=== PATIENT | male | born 1950 | race Caucasian/White ===

== ENCOUNTER 2018-01-30 18:41 | Inpatient (IN) | payer MEDICARE ==
[~2018-01-30] VITALS: Ht 188 cm; Wt 115.2 kg
[2018-01-30 18:48] VITALS: BP 174/88; PULSE 107; RESP 26; TEMP 100.9; O2SAT 89
[2018-01-30] MEDS ORDERED: ATOR40TA16 PO (18:56)
[2018-01-30] MEDS ORDERED: LOSA100T PO (18:56)
[2018-01-30] MEDS ORDERED: VENL75TA PO (18:56)
[2018-01-30] MEDS ORDERED: BACL10TA PO (18:58)
[2018-01-30] MEDS ORDERED: AMOX875T PO (18:58)
[2018-01-30] MEDS ORDERED: CARA1SUS3 PO (18:58)
[2018-01-30] MEDS ORDERED: MORPHINE SULFATE 4 MG/ML INJ IV PUSH ONE (19:00)
[2018-01-30] MEDS ORDERED: SODIUM CHLORIDE 0.9% FLUSH 10 ML FLUSH IVF PRN (19:00)
--- NOTE | 2018-01-30 19:12 | PD ---
HPI Chief Complaint: Cardiac Complaint Time Seen by Provider: 18:55 Travel History International Travel<30 days: No Contact w/Intl Traveler<30days: No Traveled to known affect area: No History of Present Illness HPI This is a 67-year-old male with a history hyperlipidemia, peptic ulcer disease, who presents here with shortness of breath and left-sided chest pain starting Friday, 3 days ago. Patient states that it has been progressive. Patient was seen at an urgent care yesterday and started on amoxicillin and Carafate. At that time, he states that they told him his chest x-ray was fine however he had sinusitis. They told him that if he develops any worsening symptoms that he should come be seen at an ER. The patient reports the chest pain as sharp and reports it as an 8 out of 10 on the pain scale. He reports it radiates to his back below his scapula. The patient denies any history of heart attacks or coronary artery disease. PFSH Past Medical History Depression: Yes High Cholesterol: Yes Hypertension: Yes Medical other: Yes (IBS) Ulcer: Yes Past Surgical History Abdominal Surgery: Yes (HERNIA) Appendectomy: Yes Genitourinary Surgery: Yes (TURP) Tonsillectomy: Yes Social History Alcohol Use: Yes (OCC) Tobacco Use: No Substance Use: No Allergies-Medications (Allergen,Severity, Reaction): Coded Allergies: Penicillins (Verified Allergy, Unknown, Hives, 01/30/18) Sulfa (Sulfonamide Antibiotics) (Verified Allergy, Unknown, Hives, 01/30/18) aspirin (Verified Allergy, Unknown, Hives, 01/30/18) Reported Meds & Prescriptions Reported Meds & Active Scripts Active Reported Carafate Liq (Sucralfate) 1 Gm/10 Ml Susp 10 Ml PO DAILY on empty stomach Baclofen 10 Mg Tab 10 Mg PO DAILY Amoxicillin 875 Mg Tab 875 Mg PO BID Atorvastatin (Atorvastatin Calcium) 40 Mg Tab 40 Mg PO HS Effexor (Venlafaxine HCl) 75 Mg Tab 75 Mg PO DAILY Losartan (Losartan Potassium) 100 Mg Tab 100 Mg PO DAILY Review of Systems Except as stated in HPI: all other systems reviewed are Neg General / Constitutional: Positive: Fever, No: Chills Eyes: No: Blurred Vision, Drainage HENT: No: Headaches, Lightheadedness, Neck Pain Cardiovascular: Positive: Chest Pain or Discomfort, Palpitations, Tachycardia Respiratory: Positive: Shortness of Breath, No: Cough Gastrointestinal: No: Nausea, Vomiting, Abdominal Pain Genitourinary: No: Urgency, Dysuria Musculoskeletal: Positive: Pain (Radiating from his left chest to the back shoulder blade.), No: Weakness Skin: No Rash, No Lesions Neurologic: No: Weakness, Dizziness, Headache Physical Exam Narrative GENERAL: Well-developed well-nourished male in obvious discomfort. SKIN: Focused skin assessment warm/dry. HEAD: Atraumatic. Normocephalic. EYES: No scleral icterus. No injection or drainage. ENT: No nasal bleeding or discharge. Mucous membranes pink and moist. NECK: Trachea midline. No JVD. CARDIOVASCULAR: Sinus tachycardia with a rate of 116. No obvious murmurs appreciated. RESPIRATORY: Clear to auscultation bilaterally. No rales appreciated. GASTROINTESTINAL: Abdomen soft, non-tender, nondistended. No pulsatile masses appreciated. MUSCULOSKELETAL: No obvious deformities. No clubbing. No cyanosis. No edema. NEUROLOGICAL: Awake and alert. No obvious cranial nerve deficits. Motor grossly within normal limits. Normal speech. Data Data Last Documented VS Vital Signs Date Time Temp Pulse Resp B/P (MAP) Pulse Ox O2 Delivery O2 Flow Rate FiO2 01/30/18 18:52 94 Nasal Cannula 2.00 01/30/18 18:48 100.9 107 26 174/88 (116) Orders Orders Electrocardiogram (01/30/18 18:55) Ckmb (Isoenzyme) Profile (01/30/18 18:55) Complete Blood Count With Diff (01/30/18 18:55) Comprehensive Metabolic Panel (01/30/18 18:55) D-Dimer (01/30/18 18:55) Magnesium (Mg) (01/30/18 18:55) Prothrombin Time / Inr (Pt) (01/30/18 18:55) Act Partial Throm Time (Ptt) (01/30/18 18:55) Troponin I (01/30/18 18:55) Chest, Single Ap (01/30/18 18:55) Ecg Monitoring (01/30/18 18:55) Bilateral Bp Monitoring (01/30/18 18:55) Iv Access Insert/Monitor (01/30/18 18:55) Oximetry (01/30/18 18:55) Oxygen Administration (01/30/18 18:55) Morphine Inj (Morphine Inj) (01/30/18 19:00) Sodium Chloride 0.9% Flush (Ns Flush) (01/30/18 19:00) Blood Culture (01/30/18 19:06) Lactic Acid Sepsis Protocol (01/30/18 19:06) Acetaminophen (Tylenol) (01/30/18 19:15) Ct Pulmonary Angiogram (01/30/18 ) Labs Laboratory Tests Test 01/30/18 19:10 White Blood Count 17.6 TH/MM3 Red Blood Count 5.49 MIL/MM3 Hemoglobin 14.9 GM/DL Hematocrit 44.8 % Mean Corpuscular Volume 81.5 FL Mean Corpuscular Hemoglobin 27.1 PG Mean Corpuscular Hemoglobin Concent 33.2 % Red Cell Distribution Width 15.8 % Platelet Count 215 TH/MM3 Mean Platelet Volume 7.5 FL Neutrophils (%) (Auto) 71.4 % Lymphocytes (%) (Auto) 10.5 % Monocytes (%) (Auto) 5.8 % Eosinophils (%) (Auto) 11.1 % Basophils (%) (Auto) 1.2 % Neutrophils # (Auto) 12.6 TH/MM3 Lymphocytes # (Auto) 1.8 TH/MM3 Monocytes # (Auto) 1.0 TH/MM3 Eosinophils # (Auto) 2.0 TH/MM3 Basophils # (Auto) 0.2 TH/MM3 CBC Comment DIFF FINAL Differential Comment Blood Urea Nitrogen 12 MG/DL Creatinine 1.20 MG/DL Random Glucose 120 MG/DL Albumin 3.3 GM/DL Calcium Level 8.6 MG/DL Magnesium Level 2.2 MG/DL Aspartate Amino Transf (AST/SGOT) 15 U/L Alanine Aminotransferase (ALT/SGPT) 23 U/L Sodium Level 136 MEQ/L Potassium Level 4.0 MEQ/L Chloride Level 99 MEQ/L Carbon Dioxide Level 25.7 MEQ/L Anion Gap 11 MEQ/L Estimat Glomerular Filtration Rate 61 ML/MIN Lactic Acid Level 1.1 mmol/L [facility] Medical Decision Making Medical Screen Exam Complete: Yes Emergency Medical Condition: Yes Differential Diagnosis ACS versus pulmonary embolus versus thoracic aortic dissection Narrative Course 67-year-old male with history of hypertension, hyperlipidemia, presents today with complaints of shortness of breath and chest pain. The patient has sinus tachycardia. His saturations were in the 80s in room air. Labs and x-rays are pending at this time. Patient will be signed out to Dr. Guillaume, physician replaced me at change of shift. This position will be per her. Diagnosis Primary Impression: Chest pain Additional Impressions: Dyspnea Hypoxia Tachycardia Tay Casillas MD Jan 30, 2018 19:11
--- NOTE | 2018-01-30 19:14 | PD ---
Physical Exam Narrative Received sign out from previous team to follow up labs, reevaluate. 67yo M with PMH of peptic ulcer disease, BPH presents to the ED with c/o left sided chest pain for 3 days. Said pain is sharp, radiates to left scapula and constant. Associated with sob. Cough makes the pain worst. Pt went to urgent care 3 days ago and was given amoxicillin for sinusitis and had negative CXR. Pt is hypoxic at 89% on room air and saturating at 93% on 2L NC. He is tachypneic and tachycardic. Labs reviewed, leukocytosis at 17.6. H/H normal. Lactic acid normal at 1.1. Troponin negative. CXR showed bibasilar areas of atelectasis. CT angio showed large left pulmonary embolus. Patchy areas of consolidation seen at the periphery of left lung. Could represent areas of atelectasis, consolidation, or infarction. Suspected atelectasis or consolidation at the right lung base. Heparin bolus and drip started. Pt denies any bleeding or black stool. O2 sat is 93-94% on 1-2 liters nasal cannula. Pt cover with vancomycin and aztreonam for pneumonia. He is hemodynamically stable. Discussed with Dr. Adams and accepted to her service to the [facility]. Data Data Last Documented VS Vital Signs Date Time Temp Pulse Resp B/P (MAP) Pulse Ox O2 Delivery O2 Flow Rate FiO2 01/30/18 20:57 100.6 102 18 134/82 (99) 93 Room Air 01/30/18 18:52 2.00 Orders Orders Electrocardiogram (01/30/18 18:55) Ckmb (Isoenzyme) Profile (01/30/18 18:55) Complete Blood Count With Diff (01/30/18 18:55) Comprehensive Metabolic Panel (01/30/18 18:55) D-Dimer (01/30/18 18:55) Magnesium (Mg) (01/30/18 18:55) Prothrombin Time / Inr (Pt) (01/30/18 18:55) Act Partial Throm Time (Ptt) (01/30/18 18:55) Troponin I (01/30/18 18:55) Chest, Single Ap (01/30/18 18:55) Ecg Monitoring (01/30/18 18:55) Bilateral Bp Monitoring (01/30/18 18:55) Iv Access Insert/Monitor (01/30/18 18:55) Oximetry (01/30/18 18:55) Oxygen Administration (01/30/18 18:55) Morphine Inj (Morphine Inj) (01/30/18 19:00) Sodium Chloride 0.9% Flush (Ns Flush) (01/30/18 19:00) Blood Culture (01/30/18 19:06) Lactic Acid Sepsis Protocol (01/30/18 19:06) Acetaminophen (Tylenol) (01/30/18 19:15) Ct Pulmonary Angiogram (01/30/18 ) [employer] / Telemetry ERAN.Q8H (01/30/18 20:34) Intake + Output ERAN.QSHIFT (01/30/18 20:34) Resp Pulse Oximetry (01/30/18 ) Heparin Inj (Heparin Inj) (01/30/18 20:45) Heparin-D5w 25,000 U/250 Ml (Heparin-D5w (01/30/18 21:00) Act Partial Throm Time (Ptt) (01/30/18 20:34) Prothrombin Time / Inr (Pt) (01/30/18 20:34) Cbc No Diff, Includes Plts (01/30/18 20:34) Cbc No Diff, Includes Plts (02/02/18 06:00) Act Partial Throm Time (Ptt) (01/31/18 03:34) Vancomycin Inj (Vancomycin Inj) (01/30/18 21:00) Aztreonam Inj (Azactam Inj) (01/30/18 21:00) Ns (Bolus) Inj (01/30/18 21:15) Admit Order (Ed Use Only) (01/30/18 21:02) Labs Laboratory Tests Test 01/30/18 19:10 White Blood Count 17.6 TH/MM3 Red Blood Count 5.49 MIL/MM3 Hemoglobin 14.9 GM/DL Hematocrit 44.8 % Mean Corpuscular Volume 81.5 FL Mean Corpuscular Hemoglobin 27.1 PG Mean Corpuscular Hemoglobin Concent 33.2 % Red Cell Distribution Width 15.8 % Platelet Count 215 TH/MM3 Mean Platelet Volume 7.5 FL Neutrophils (%) (Auto) 71.4 % Lymphocytes (%) (Auto) 10.5 % Monocytes (%) (Auto) 5.8 % Eosinophils (%) (Auto) 11.1 % Basophils (%) (Auto) 1.2 % Neutrophils # (Auto) 12.6 TH/MM3 Lymphocytes # (Auto) 1.8 TH/MM3 Monocytes # (Auto) 1.0 TH/MM3 Eosinophils # (Auto) 2.0 TH/MM3 Basophils # (Auto) 0.2 TH/MM3 CBC Comment DIFF FINAL Differential Comment Prothrombin Time 10.5 SEC Prothromb Time International Ratio 1.0 RATIO Activated Partial Thromboplast Time 27.7 SEC D-Dimer Quantitative (PE/DVT) 2.53 MG/L FEU Blood Urea Nitrogen 12 MG/DL Creatinine 1.20 MG/DL Random Glucose 120 MG/DL Total Protein 7.8 GM/DL Albumin 3.3 GM/DL Calcium Level 8.6 MG/DL Magnesium Level 2.2 MG/DL Alkaline Phosphatase 67 U/L Aspartate Amino Transf (AST/SGOT) 15 U/L Alanine Aminotransferase (ALT/SGPT) 23 U/L Total Bilirubin 0.6 MG/DL Sodium Level 136 MEQ/L Potassium Level 4.0 MEQ/L Chloride Level 99 MEQ/L Carbon Dioxide Level 25.7 MEQ/L Anion Gap 11 MEQ/L Estimat Glomerular Filtration Rate 61 ML/MIN Lactic Acid Level 1.1 mmol/L Total Creatine Kinase 67 U/L Troponin I LESS THAN 0.02 NG/ML MDM Supervised Visit with KO: No Interpretation(s) EKG: Sinus tachycardia at 106bpm. Normal axis. No significant ST elevation or depression. Critical Care Narrative Aggregate critical care time was 50 minutes. Time to perform other separately billable procedures was not included in the critical care time. My time did not include minutes spent treating any other patients simultaneously or on activities that did not directly contribute to the patient's treatment. The services I provided to this patient were to treat and/or prevent clinically significant deterioration that could result in: cardiovascular collapse or . I provided critical care services requiring my management, as noted below: Chart data review, documentation time, medication orders and management, vital sign assessments/reviewing monitor data, ordering and reviewing lab tests, ordering and interpreting/reviewing x-rays and diagnostic studies, care of the patient and discussion of the patient with the admitting physicians. Diagnosis Primary Impression: Pulmonary embolism Qualified Codes: I26.99 - Other pulmonary embolism without acute cor pulmonale Admitting Information Admitting Physician Requests: Admit Vannessa Guillaume DO Jan 30, 2018 19:14
[2018-01-30] MEDS ORDERED: ACETAMINOPHEN 325 MG TAB PO ONE (19:15)
[2018-01-30 19:34] LABS: AUTOMATED NEUTROPHIL # 12.6 TH/MM3 (1.8-7.7); BASOPHIL # 0.2 TH/MM3 (0-0.2); BASOPHIL % 1.2 % (0.0-2.0); EOSINOPHIL % 11.1 % (0.0-4.0); HEMATOCRIT 44.8 % (39.0-51.0); HEMOGLOBIN 14.9 GM/DL (13.0-17.0); LYMPH % 10.5 % (9.0-44.0); LYMPHOCYTE # 1.8 TH/MM3 (1.0-4.8); MEAN CELL VOLUME 81.5 FL (80.0-100.0); MEAN CORPUSCULAR HEMOGLOBIN 27.1 PG (27.0-34.0); MEAN CORPUSCULAR HGB CONC 33.2 % (32.0-36.0); MEAN PLATELET VOLUME 7.5 FL (7.0-11.0); MONO % 5.8 % (0.0-8.0); NEUT % 71.4 % (16.0-70.0); PLATELET COUNT 215 TH/MM3 (150-450); RED BLOOD COUNT 5.49 MIL/MM3 (4.50-5.90); RED CELL DISTRIBUTION WIDTH 15.8 % (11.6-17.2); WHITE BLOOD COUNT 17.6 TH/MM3 (4.0-11.0)
--- NOTE | 2018-01-30 19:46 | RADRPT ---
EXAM DATE: 01/30/2018 7:38 PM EDT AGE/SEX: 67 years / Male INDICATIONS: Shortness of breath, chest pain for 4 days CLINICAL DATA: This is the patient's initial encounter. Patient reports that signs and symptoms have been present for 4 - 6 days and indicates a pain score of 6/10. MEDICAL/SURGICAL HISTORY: None. None. COMPARISON: No prior exams available for comparison. FINDINGS: The heart size is normal. There is linear density seen at the bases bilaterally. The mid and upper nia ngs are clear. No effusion is seen. CONCLUSION: Suspected bibasilar areas of atelectasis. Electronically signed by: Ken Smyth MD 01/30/2018 7:45 PM EDT
[2018-01-30 20:05] LABS: PROTHROMBIN TIME - PATIENT 10.5 SEC (9.8-11.6)
[2018-01-30 20:06] LABS: ALBUMIN 3.3 GM/DL (3.4-5.0); AST (GOT) 15 U/L (15-37); BICARBONATE 25.7 MEQ/L (21.0-32.0); BLOOD UREA NITROGEN 12 MG/DL (7-18); CALCIUM 8.6 MG/DL (8.5-10.1); CHLORIDE 99 MEQ/L (98-107); GLOMERULAR FILTRATION RATE 61 ML/MIN (>89); GLUCOSE,RANDOM 120 MG/DL (74-106); MAGNESIUM 2.2 MG/DL (1.5-2.5); SODIUM (NA) 136 MEQ/L (136-145)
[2018-01-30 20:07] LABS: ALT (GPT) 23 U/L (12-78)
[2018-01-30 20:11] LABS: ALKALINE PHOSPHATASE 67 U/L (45-117); TOTAL BILIRUBIN ADULT 0.6 MG/DL (0.2-1.0); TOTAL PROTEIN 7.8 GM/DL (6.4-8.2); TROPONIN I LESS THAN 0.02 NG/ML (0.02-0.05)
[2018-01-30 20:16] LABS: D-DIMER 2.53 MG/L FEU (0.00-0.50)
--- NOTE | 2018-01-30 20:43 | RADRPT ---
EXAM DATE: 01/30/2018 8:35 PM EDT AGE/SEX: 67 years / Male INDICATIONS: Right sided chest pain, shortness of breath. CLINICAL DATA: This is the patient's initial encounter. Patient reports that signs and symptoms have been present for 1 day and indicates a pain score of 4/10. MEDICAL/SURGICAL HISTORY: Hypertension. Appendectomy. RADIATION DOSE: 23.30 CTDI (mGy) COMPARISON: No prior exams available for comparison. TECHNIQUE: Volumetric scanning was performed using a multi-row detector CT scanner during bolus infu howard of 75 ml Omnipaque 350 (iohexol) nonionic water-soluble contrast as a single exam dose. The roslyn a was post processed with a variety of visualization algorithms including full volume maximum intensi ty projection and sliding thin slab reformation. Using automated exposure control and adjustment of the mA and/or kV according to patient size, radiation dose was kept as low as reasonably achievable t o obtain optimal diagnostic quality images. FINDINGS: Pulmonary Arteries: There is a large pulmonary embolus seen at the left pulmonary artery. There exte nds into the pulmonary artery supplying the left upper and lower lobes. No pulmonary embolus is seen on the right side. Lung: There are patchy areas of density seen in the posterior left upper lobe, at the periphery of t he left midlung, and at the posterior left base. These areas are nonspecific and could represent area s of atelectasis. Infarcts could have a similar appearance. There is some patchy consolidation or ate lectasis at the posterior right lower lobe. Effusion: None. Mediastinum: No evidence of mediastinal or hilar adenopathy. Other: The axilla is unremarkable. There is a 2.5 cm suspected cyst in the superior aspect of the ri ght lobe of the liver. CONCLUSION: 1. Large left pulmonary embolus. 2. Patchy areas of consolidation seen at the periphery of the left lung. These could represent areas of atelectasis, consolidation or infarction. 3. Suspected atelectasis or consolidation at the right lung base. Electronically signed by: Ken Smyth MD 01/30/2018 8:42 PM EDT
[2018-01-30] MEDS ORDERED: HEPARIN SODIUM - IV 10,000 UNITS/10 ML VIAL IV PUSH ONE (20:45)
[2018-01-30 20:57] VITALS: BP 134/82; PULSE 102; RESP 18; TEMP 100.6; O2SAT 93
[2018-01-30] MEDS ORDERED: HEPARIN-D5W 25,000 U/250 ML 250 ML IV PRN (21:00)
[2018-01-30] MEDS ORDERED: AZTREONAM INJ 1,000 MG in SODIUM CHLORIDE 0.9% INJ 100 ML IV ONE (21:00)
[2018-01-30] MEDS ORDERED: VANCOMYCIN INJ 1,600 MG in SODIUM CHLORID 0.9% 500 ML INJ 500 ML IV ONE (21:00)
[2018-01-30] MEDS ORDERED: SODIUM CHLOR 0.9% 1000 ML INJ 1,000 ML IV ONE (21:15)
--- NOTE | 2018-01-30 21:39 | HHI.HP ---
[facility] Unknown Admission Diagnosis Large left PE, pneumonia Diagnoses: (1) Sepsis Diagnosis: Principal (2) PE (pulmonary thromboembolism) Diagnosis: Principal (3) PNA (pneumonia) Diagnosis: Principal (4) Chest pain Diagnosis: Principal Travel History International Travel<30 Days: No Contact w/Intl Traveler <30 Da: No Traveled to Known Affected Are: No History of Present Illness This is a 67-year-old male with a PMH of HTN, Hyperlipidemia and Depression who presents to ER with complaints of chest pain and SOB x3 days. States he is on vacation here from [place] w/ , flew into town 1wk ago. Was seen at Urgent Care yesterday for SOB and had negative CXR per patient, was given Rx for Amoxicillin for sinusitis. Today, pt w/ worsening c/o chest pain and SOB. Chest pain is left-sided, severe, 9/10, constant, worse w/ deep breath. No h/o CAD. SOB worse w/ exertion. On arrival, BP 174/88, HR 107, O2 sat 89% on RA, Temp 100.9. WBC 17.6. GFR 61. Lactic Acid normal. Troponin negative. INR 1.0. D-dimer 2.53. CXR with bibasilar atelectasis. CTA Pulm w/ large left PE , patchy areas of consolidation bilaterally. S/p Vanc/Zosyn in ER, started on Heparin gtt. Denies previous h/o DVT/PE, no recent surgery, no tobacco abuse, + recent travel. Review of Systems Except as stated in HPI: all other systems reviewed are Neg ROS: 14 point review of systems otherwise negative. Past Family Social History Past Medical History PMH: HTN, Hyperlipidemia and Depression Past Surgical History PAST SURGICAL HISTORY: Hernia Repair, Appendectomy, TURP, Tonsillectomy Allergies: Coded Allergies: Penicillins (Verified Allergy, Unknown, Hives, 01/30/18) Sulfa (Sulfonamide Antibiotics) (Verified Allergy, Unknown, Hives, 01/30/18) aspirin (Verified Allergy, Unknown, Hives, 01/30/18) Family History PAST FAMILY HISTORY: Reviewed. No h/o DM or CAD Social History PAST SOCIAL HISTORY: Occasional alcohol. Negative for tobacco or drugs per Physical Exam Vital Signs Vital Signs Date Time Temp Pulse Resp B/P (MAP) Pulse Ox O2 Delivery O2 Flow Rate FiO2 01/30/18 20:57 100.6 102 18 134/82 (99) 93 Room Air 01/30/18 18:52 94 Nasal Cannula 2.00 01/30/18 18:48 100.9 107 26 174/88 (116) 89 Physical Exam PE: GENERAL: Very pleasant middle-aged white male in no acute distress. at bedside. HEENT: PERRLA, EOMI. No scleral icterus or conjunctival pallor. No lid lag or facial droop. CARDIOVASCULAR: Regular rate and rhythm. No obvious murmurs to auscultation. No chest tenderness to palpation. RESPIRATORY: No obvious rhonchi or wheezing. Clear to auscultation. Breath sounds equal bilaterally. GASTROINTESTINAL: Abdomen soft, non-tender, nondistended. BS normal. MUSCULOSKELETAL: Extremities without clubbing, cyanosis, or edema. No obvious deformities. NEUROLOGICAL: Awake, alert and oriented x4. No focal neurologic deficits. Moving both upper and lower extremities spontaneously. Laboratory Laboratory Tests Test 01/30/18 19:10 White Blood Count 17.6 Red Blood Count 5.49 Hemoglobin 14.9 Hematocrit 44.8 Mean Corpuscular Volume 81.5 Mean Corpuscular Hemoglobin 27.1 Mean Corpuscular Hemoglobin Concent 33.2 Red Cell Distribution Width 15.8 Platelet Count 215 Mean Platelet Volume 7.5 Neutrophils (%) (Auto) 71.4 Lymphocytes (%) (Auto) 10.5 Monocytes (%) (Auto) 5.8 Eosinophils (%) (Auto) 11.1 Basophils (%) (Auto) 1.2 Neutrophils # (Auto) 12.6 Lymphocytes # (Auto) 1.8 Monocytes # (Auto) 1.0 Eosinophils # (Auto) 2.0 Basophils # (Auto) 0.2 CBC Comment DIFF FINAL Differential Comment Prothrombin Time 10.5 Prothromb Time International Ratio 1.0 Activated Partial Thromboplast Time 27.7 D-Dimer Quantitative (PE/DVT) 2.53 Blood Urea Nitrogen 12 Creatinine 1.20 Random Glucose 120 Total Protein 7.8 Albumin 3.3 Calcium Level 8.6 Magnesium Level 2.2 Alkaline Phosphatase 67 Aspartate Amino Transf (AST/SGOT) 15 Alanine Aminotransferase (ALT/SGPT) 23 Total Bilirubin 0.6 Sodium Level 136 Potassium Level 4.0 Chloride Level 99 Carbon Dioxide Level 25.7 Anion Gap 11 Estimat Glomerular Filtration Rate 61 Lactic Acid Level 1.1 Total Creatine Kinase 67 Troponin I LESS THAN 0.02 Date/Time Source Procedure Growth Status 01/30/18 19:10 Blood Peripheral Aerobic Blood Culture Pending Received 01/30/18 19:10 Blood Peripheral Anaerobic Blood Culture Pending Received Result Diagram: 01/30/18190901/30/181909 Caprini VTE Risk Assessment Caprini VTE Risk Assessment: Mod/High Risk (score >= 2) Caprini Risk Assessment Model Point Value = 1 Point Value = 2 Point Value = 3 Point Value = 5 Age 41-60 Minor surgery BMI > 25 kg/m2 Swollen legs Varicose veins or History of unexplained or recurrent spontaneous Oral contraceptives or hormone replacement Sepsis (< 1 month) Serious lung disease, including pneumonia (< 1 month) Abnormal pulmonary function Acute myocardial infarction Congestive heart failure (< 1 month) History of inflammatory bowel disease Medical patient at bed rest Age 61-74 Arthroscopic surgery Major open surgery (> 45 min) Laparoscopic surgery (> 45 min) Malignancy Confined to bed (> 72 hours) Immobilizing plaster cast Central venous access Age >= 75 History of VTE Family history of VTE Factor V Leiden Prothrombin [id number] Lupus anticoagulant Anticardiolipin antibodies Elevated serum homocysteine Heparin-induced thrombocytopenia Other congenital or acquired thrombophilia Stroke (< 1 month) Elective arthroplasty Hip, pelvis, or leg fracture Acute spinal cord injury (< 1 month) Prophylaxis Regimen Total Risk Factor Score Risk Level Prophylaxis Regimen 0-1 Low Early ambulation 2 Moderate Order ONE of the following: *Sequential Compression Device (SCD) *Heparin 5000 units SQ BID 3-4 Higher Order ONE of the following medications: *Heparin 5000 units SQ TID *Enoxaparin/Lovenox 40 mg SQ daily (WT < 150 kg, CrCl > 30 mL/min) *Enoxaparin/Lovenox 30 mg SQ daily (WT < 150 kg, CrCl > 10-29 mL/min) *Enoxaparin/Lovenox 30 mg SQ BID (WT < 150 kg, CrCl > 30 mL/min) AND/OR *Sequential Compression Device (SCD) 5 or more Highest Order ONE of the following medications: *Heparin 5000 units SQ TID (Preferred with Epidurals) *Enoxaparin/Lovenox 40 mg SQ daily (WT < 150 kg, CrCl > 30 mL/min) *Enoxaparin/Lovenox 30 mg SQ daily (WT < 150 kg, CrCl > 10-29 mL/min) *Enoxaparin/Lovenox 30 mg SQ BID (WT < 150 kg, CrCl > 30 mL/min) AND *Sequential Compression Device (SCD) Assessment and Plan Problem List: (1) Sepsis ICD Code: A41.9 - Sepsis, unspecified organism (2) PNA (pneumonia) ICD Code: J18.9 - Pneumonia, unspecified organism (3) PE (pulmonary thromboembolism) ICD Code: I26.99 - Other pulmonary embolism without acute cor pulmonale (4) Chest pain ICD Code: R07.9 - Chest pain, unspecified Status: Acute Assessment and Plan A/P: 1. Sepsis: Temp 100.9, HR 107, WBC 17, Source-PNA, vitals/leukocytosis likely compounded by acute PE. S/p Vanc/Zosyn in ER, will continue w/ IV Abx, follow up cultures, IVF for hydration, repeat labs in am. 2. PNA: CXR w/ bibasilar atelectasis, CTA Pulm w/ bilateral consolidations, images reviewed by me. Continue w/ IV Abx, follow up cultures as above, DuoNeb prn. 3. PE: CTA Pulm w/ large left PE, images reviewed by me. No h/o PE in the past, +recent travel from [place]. Currently on Heparin gtt, will continue. Hemodynamically stable at this time, no indication for emergent intervention. Monitor O2. Check Echo to eval for right heart strain, DuoNeb prn, Symbicort for bronchospasm. 4. Chest Pain: Likely secondary to PE, initial trop negative, will check serial cardiac enzymes to eval for underlying ischemia/strain. Cardiology consult as needed. Morphine prn. 5. DVT Prophylaxis: on Heparin gtt 6. Social work for d/c planning as needed. 7. Case discussed w/ ER physician at length, labs/records/imaging reviewed by me. Physician Certification 2 Midnight Certification Type: Admission for Inpatient Services Order for Inpatient Services The services are ordered in accordance with Medicare regulations or non- Medicare payer requirements, as applicable. In the case of services not specified as inpatient-only, they are appropriately provided as inpatient services in accordance with the 2-midnight benchmark. Estimated LOS (days): 2 days is the estimated time the patient will need to remain in the hospital, assuming treatment plan goals are met and no additional complications. Post-Hospital Plan: Not yet determined Isabel Adams MD Jan 30, 2018 21:38
[2018-01-30 21:40] VITALS: O2SAT 94
[2018-01-30] MEDS ORDERED: RESP: ALBUTEROL 2.5 MG/IPRATROPIUM 0.5 MG NEB (PRN) NEB (21:45)
[2018-01-30] MEDS ORDERED: MAGNESIUM HYDROXIDE SUSP 30 ML CUP PO PRN (21:45)
[2018-01-30] MEDS ORDERED: ACETAMINOPHEN 325 MG TAB PO PRN (21:45)
[2018-01-30] MEDS ORDERED: Vancomycin Consult Pharmacy 1 EA OTHER SCH (21:45)
[2018-01-30] MEDS ORDERED: LACTULOSE SYRUP 20 GM/30 ML CUP PO PRN (21:45)
[2018-01-30] MEDS ORDERED: SODIUM CHLORIDE 0.9% FLUSH 10 ML FLUSH IV FLUSH PRN (21:45)
[2018-01-30] MEDS ORDERED: BISACODYL 10 MG SUPP RECTAL PRN (21:45)
[2018-01-30] MEDS ORDERED: METOCLOPRAMIDE HCL 10 MG/2 ML VIAL IV PUSH PRN (21:45)
[2018-01-30] MEDS ORDERED: SENNOSIDES 8.6 MG TAB PO PRN (21:45)
[2018-01-30 22:00] VITALS: BP 133/77; PULSE 95; RESP 20; TEMP 100.4; O2SAT 94
[2018-01-30] MEDS ORDERED: SODIUM CHLOR 0.9% 1000 ML INJ 1,000 ML IV SCH (22:00)
[2018-01-30] MEDS: ACETAMINOPHEN/HYDROcodone 325 MG/5 MG TAB PO PRN (22:02)
[2018-01-30] MEDS: MORPHINE SULFATE 4 MG/ML INJ IV PRN (22:41)
[2018-01-31] VITALS (26 sets, daily range): BP systolic 113–140; BP diastolic 75–80; PULSE 80–104; RESP 16–20; TEMP 98–100.2; O2SAT 91–96
[2018-01-31] MEDS: ACETAMINOPHEN/HYDROcodone 325 MG/5 MG TAB PO PRN ×3 (02:15→20:24)
[2018-01-31] MEDS ORDERED: AZTREONAM INJ 1,000 MG in SODIUM CHLORIDE 0.9% INJ 100 ML IV SCH (05:00)
[2018-01-31 05:42] LABS: AUTOMATED NEUTROPHIL # 11.1 TH/MM3 (1.8-7.7); BASOPHIL # 0.2 TH/MM3 (0-0.2); BASOPHIL % 1.1 % (0.0-2.0); EOSINOPHIL # 1.9 TH/MM3 (0-0.4); EOSINOPHIL % 11.3 % (0.0-4.0); HEMATOCRIT 40.4 % (39.0-51.0); HEMOGLOBIN 13.4 GM/DL (13.0-17.0); LYMPH % 13.4 % (9.0-44.0); LYMPHOCYTE # 2.2 TH/MM3 (1.0-4.8); MEAN CELL VOLUME 82.5 FL (80.0-100.0); MEAN CORPUSCULAR HEMOGLOBIN 27.3 PG (27.0-34.0); MEAN CORPUSCULAR HGB CONC 33.1 % (32.0-36.0); MEAN PLATELET VOLUME 7.6 FL (7.0-11.0); MONO % 7.7 % (0.0-8.0); MONOCYTE # 1.3 TH/MM3 (0-0.9); NEUT % 66.5 % (16.0-70.0); PLATELET COUNT 183 TH/MM3 (150-450); RED CELL DISTRIBUTION WIDTH 15.8 % (11.6-17.2); WHITE BLOOD COUNT 16.8 TH/MM3 (4.0-11.0)
[2018-01-31 05:50] LABS: ALBUMIN 2.8 GM/DL (3.4-5.0); ALT (GPT) 17 U/L (12-78); AST (GOT) 10 U/L (15-37); BICARBONATE 23.8 MEQ/L (21.0-32.0); BLOOD UREA NITROGEN 11 MG/DL (7-18); CALCIUM 7.8 MG/DL (8.5-10.1); CHLORIDE 102 MEQ/L (98-107); CREATININE 0.93 MG/DL (0.60-1.30); GLOMERULAR FILTRATION RATE 81 ML/MIN (>89); GLUCOSE,RANDOM 115 MG/DL (74-106); SODIUM (NA) 136 MEQ/L (136-145)
[2018-01-31 05:54] LABS: ALKALINE PHOSPHATASE 55 U/L (45-117); TOTAL BILIRUBIN ADULT 0.6 MG/DL (0.2-1.0); TOTAL PROTEIN 6.6 GM/DL (6.4-8.2); TROPONIN I LESS THAN 0.02 NG/ML (0.02-0.05)
[2018-01-31] MEDS ORDERED: NON-FORMULARY DRUG (Venlafaxine (Effexor) 75 MG) PO SCH (09:00)
[2018-01-31] MEDS ORDERED: VANCOMYCIN INJ 1,500 MG in SODIUM CHLORID 0.9% 500 ML INJ 500 ML IV SCH (09:00)
--- NOTE | 2018-01-31 09:32 | HHI.PR ---
Subjective Remarks Follow-up for pulmonary embolism. Patient is currently doing well. He is using oxygen 2 L via nasal cannula. Denies any fever or chills. However when he moves or takes a deep breath he does have some left-sided chest pain. Otherwise he remains hemodynamically stable. Objective Vitals Vital Signs Date Time Temp Pulse Resp B/P (MAP) Pulse Ox O2 Delivery O2 Flow Rate FiO2 01/31/18 07:45 98.0 81 18 121/79 (93) 95 01/31/18 07:45 80 01/31/18 05:13 98.4 85 16 113/77 (89) 96 01/31/18 05:00 84 01/31/18 04:22 16 01/31/18 04:00 84 01/31/18 03:00 90 01/31/18 03:00 99 01/31/18 02:00 92 01/31/18 01:00 104 01/31/18 00:00 93 01/31/18 00:00 100.2 100 20 140/80 (100) 95 01/30/18 22:57 20 01/30/18 22:39 01/30/18 22:00 100.4 95 20 133/77 (95) 94 Nasal Cannula 2.00 01/30/18 21:40 94 Nasal Cannula 2.00 01/30/18 20:57 100.6 102 18 134/82 (99) 93 Room Air 01/30/18 18:52 94 Nasal Cannula 2.00 01/30/18 18:48 100.9 107 26 174/88 (116) 89 I/O 01/30/18 01/30/18 01/30/18 01/31/18 01/31/18 01/31/18 07:00 15:00 23:00 07:00 15:00 23:00 Intake Total 1100 ml 1080 ml Output Total 600 ml Balance 1100 ml 480 ml Intake Oral 480 ml IV Total 1100 ml 600 ml Output Urine Total 600 ml Result Diagram: 01/31/1840901/31/18409 Imaging Last Impressions Chest X-Ray 01/30/18 2765 Signed Impressions: CONCLUSION: Suspected bibasilar areas of atelectasis. CT Angiography 01/30/18 0000 Signed Impressions: CONCLUSION: 1. Large left pulmonary embolus. 2. Patchy areas of consolidation seen at the periphery of the left lung. These could represent areas of atelectasis, consolidation or infarction. 3. Suspected atelectasis or consolidation at the right lung base. Objective Remarks GENERAL: Alert, oriented 3, NAD. SKIN: Warm and dry. HEAD: Normocephalic. EYES: No scleral icterus. No injection or drainage. NECK: Supple, trachea midline. No JVD or lymphadenopathy. CARDIOVASCULAR: Regular rate and rhythm without murmurs, gallops, or rubs. RESPIRATORY: Breath sounds equal bilaterally. No accessory muscle use. GASTROINTESTINAL: Abdomen soft, non-tender, nondistended. MUSCULOSKELETAL: No cyanosis, or edema. BACK: Nontender without obvious deformity. No CVA tenderness. Procedures None A/P Problem List: (1) Sepsis ICD Code: A41.9 - Sepsis, unspecified organism (2) PNA (pneumonia) ICD Code: J18.9 - Pneumonia, unspecified organism (3) PE (pulmonary thromboembolism) ICD Code: I26.99 - Other pulmonary embolism without acute cor pulmonale (4) Chest pain ICD Code: R07.9 - Chest pain, unspecified Status: Acute Assessment and Plan This is a 67-year-old male with a PMH of HTN, Hyperlipidemia and Depression who presents to ER with complaints of chest pain and SOB x3 days. Workup in the hospital indicates possible pneumonia as well as large left-sided pulmonary embolism. Patient was a started on heparin drip. Left-sided large pulmonary embolism -Likely provoked. Patient does not have any history of blood clots. -We will switch him to apixaban this morning. -If he continues to do well, possible discharge on 02/01/2018. -Wean off supplemental O2. Probable pneumonia -will switch antibiotics from aztreonam and vancomycin to Levaquin monotherapy. Hypertension Hyperlipidemia -Continue losartan 100 mg daily, atorvastatin 40 mg nightly. Full code. Apixaban. Raquel Evans DO Jan 31, 2018 9:32 am
[2018-01-31] MEDS: SUCRALFATE 1 GM/10 ML CUP PO SCH (09:44)
[2018-01-31] MEDS: DOCUSATE SODIUM 50 MG/SENNA 8.6 MG TAB PO SCH ×2 (09:44→20:24)
[2018-01-31] MEDS: LEVOFLOXACIN 750 MG TAB PO SCH (09:45)
[2018-01-31] MEDS: LOSARTAN 50 MG TAB PO SCH (09:45)
[2018-01-31] MEDS: BACLOFEN 10 MG TAB PO SCH (09:45)
[2018-01-31] MEDS: VENLAFAXINE HCL XR 75 MG CAP PO SCH (09:45)
[2018-01-31] MEDS: APIXABAN 5 MG TABLET PO SCH ×2 (09:52→20:25)
[2018-01-31] MEDS: SODIUM CHLORIDE 0.9% FLUSH 10 ML FLUSH IV FLUSH SCH ×2 (09:52→20:25)
[2018-01-31] MEDS: MORPHINE SULFATE 4 MG/ML INJ IV PRN (13:44)
--- NOTE | 2018-01-31 15:00 | EKG ---
Date Performed: 01/30/2018 Time Performed: 18:49:43 PTAGE: 67 years EKG: SINUS TACHYCARDIA NONSPECIFIC T-WAVE ABNORMALITY ABNORMAL RHYTHM ECG NO PREVIOUS TRACING DOCTOR: Frandy Dozier Interpretating Date/Time 01/31/2018 14:59:01
[2018-01-31] MEDS: BUDESONIDE-FORMOTEROL 160/4.5 MCG INHALER INH SCH (21:00)
[2018-01-31] MEDS ORDERED: ATORVASTATIN 40 MG TAB PO SCH (21:00)
[2018-02-01] VITALS (18 sets, daily range): BP systolic 126–127; BP diastolic 79–80; PULSE 80–94; RESP 18; TEMP 98.3–99.3; O2SAT 92–98
[2018-02-01] MEDS: SUCRALFATE 1 GM/10 ML CUP PO SCH (08:18)
[2018-02-01] MEDS: DOCUSATE SODIUM 50 MG/SENNA 8.6 MG TAB PO SCH (08:19)
[2018-02-01] MEDS: APIXABAN 5 MG TABLET PO SCH (08:19)
[2018-02-01] MEDS: LOSARTAN 50 MG TAB PO SCH (08:20)
[2018-02-01] MEDS: VENLAFAXINE HCL XR 75 MG CAP PO SCH (08:20)
[2018-02-01] MEDS: BACLOFEN 10 MG TAB PO SCH (08:20)
[2018-02-01] MEDS: BUDESONIDE-FORMOTEROL 160/4.5 MCG INHALER INH SCH (08:21)
[2018-02-01] MEDS: SODIUM CHLORIDE 0.9% FLUSH 10 ML FLUSH IV FLUSH SCH (08:21)
[2018-02-01] MEDS ORDERED: PHARMACY ORDERED LAB ONE (08:45)
--- NOTE | 2018-02-01 09:49 | HHI.PR ---
Subjective Remarks Follow-up for pulmonary embolism and pneumonia. Patient is doing well. Currently on room air. When he coughs, he reports some left sided chest pain. Ambulating without dyspnea. Objective Vitals Vital Signs Date Time Temp Pulse Resp B/P (MAP) Pulse Ox O2 Delivery O2 Flow Rate FiO2 02/01/18 09:05 95 02/01/18 08:05 98.5 88 18 127/80 (96) 92 02/01/18 06:00 90 02/01/18 05:00 90 02/01/18 04:00 84 18 98 02/01/18 04:00 84 02/01/18 03:00 86 02/01/18 02:00 86 02/01/18 01:00 88 02/01/18 00:00 90 02/01/18 00:00 92 02/01/18 00:00 99.3 92 18 96 01/31/18 23:00 94 01/31/18 22:23 16 01/31/18 22:00 104 01/31/18 21:00 92 01/31/18 20:00 96 01/31/18 19:54 91 21 01/31/18 19:30 99.1 96 18 135/79 (97) 96 01/31/18 19:18 92 01/31/18 17:26 98.7 97 18 136/78 (97) 92 01/31/18 16:00 88 01/31/18 15:00 88 01/31/18 14:00 94 01/31/18 13:00 96 01/31/18 12:00 84 01/31/18 11:00 88 01/31/18 11:00 98.1 97 18 134/75 (94) 95 01/31/18 10:00 86 01/31/18 09:53 96 Nasal Cannula 2.00 I/O 01/31/18 01/31/18 01/31/18 02/01/18 02/01/18 02/01/18 07:00 15:00 23:00 07:00 15:00 23:00 Intake Total 1080 ml 360 ml 480 ml Output Total 600 ml 475 ml 600 ml Balance 480 ml -475 ml -240 ml 480 ml Intake Oral 480 ml 360 ml 480 ml IV Total 600 ml Output Urine Total 600 ml 475 ml 600 ml # Voids 2 Result Diagram: 01/31/18 0410 01/31/18409 Objective Remarks GENERAL: Alert, oriented 3, NAD. SKIN: Warm and dry. HEAD: Normocephalic. EYES: No scleral icterus. No injection or drainage. NECK: Supple, trachea midline. No JVD or lymphadenopathy. CARDIOVASCULAR: Regular rate and rhythm without murmurs, gallops, or rubs. RESPIRATORY: Breath sounds equal bilaterally. No accessory muscle use. GASTROINTESTINAL: Abdomen soft, non-tender, nondistended. MUSCULOSKELETAL: No cyanosis, or edema. BACK: Nontender without obvious deformity. No CVA tenderness. Procedures None A/P Problem List: (1) Sepsis ICD Code: A41.9 - Sepsis, unspecified organism (2) PNA (pneumonia) ICD Code: J18.9 - Pneumonia, unspecified organism (3) PE (pulmonary thromboembolism) ICD Code: I26.99 - Other pulmonary embolism without acute cor pulmonale (4) Chest pain ICD Code: R07.9 - Chest pain, unspecified Status: Acute Assessment and Plan This is a 67-year-old male with a PMH of HTN, Hyperlipidemia and Depression who presents to ER with complaints of chest pain and SOB x3 days. Workup in the hospital indicates possible pneumonia as well as large left-sided pulmonary embolism. Patient was a started on heparin drip. Left-sided large pulmonary embolism -Likely provoked. Patient does not have any history of blood clots. -Continue Apixaban. -Currently on room air. Not using pain medications today. -Will give 3 day supply of Popejoy. Probable pneumonia - continue Levaquin monotherapy. Hypertension Hyperlipidemia -Continue losartan 100 mg daily, atorvastatin 40 mg nightly. Full code. Apixaban. Discharge patient to home Condition on discharge: Improved Regular Diet as tolerated Ad Sophia activity Rx written: Apixaban 10mg BID X 6 more days then 5mg BID. Levaquin for 6 days - to make it total 7 days. Popejoy #12 Follow-up with primary care physician within one week to 10 days. Raquel Evans DO Feb 01, 2018 09:49
[2018-02-01] MEDS: LEVOFLOXACIN 750 MG TAB PO SCH (11:10)
[2018-02-01 13:10] LABS: AUTOMATED NEUTROPHIL # 10.3 TH/MM3 (1.8-7.7); BASOPHIL # 0.1 TH/MM3 (0-0.2); BASOPHIL % 0.8 % (0.0-2.0); EOSINOPHIL # 0.6 TH/MM3 (0-0.4); HEMATOCRIT 40.7 % (39.0-51.0); HEMOGLOBIN 13.8 GM/DL (13.0-17.0); LYMPH % 7.9 % (9.0-44.0); MEAN CORPUSCULAR HEMOGLOBIN 27.8 PG (27.0-34.0); MEAN CORPUSCULAR HGB CONC 33.8 % (32.0-36.0); MEAN PLATELET VOLUME 7.4 FL (7.0-11.0); MONO % 6.6 % (0.0-8.0); MONOCYTE # 0.9 TH/MM3 (0-0.9); NEUT % 79.7 % (16.0-70.0); PLATELET COUNT 210 TH/MM3 (150-450); RED BLOOD COUNT 4.96 MIL/MM3 (4.50-5.90); RED CELL DISTRIBUTION WIDTH 15.1 % (11.6-17.2)
[2018-02-01] MEDS ORDERED: LEVA750T9 PO (14:21)
[2018-02-01] MEDS ORDERED: HYDR-3516 PO (14:21)
[2018-02-01] MEDS ORDERED: APIX5TAB PO (14:21)
== END 2018-02-01 15:30 | disposition home or self-care (01) | DRG 871 ==
LOC: NEPC 18:41 → NEDA 21:04 → HCIS 23:03
PROVIDERS: ADMIT Hospitalist; ATTEND Hospitalist
DX: A41.9 Sepsis, unspecified organism (principal); I26.99 Other pulmonary embolism without acute cor pulmonale; J18.9 Pneumonia, unspecified organism; J98.11 Atelectasis; I10 Essential (primary) hypertension; E78.5 Hyperlipidemia, unspecified; R09.02 Hypoxemia; N40.0 Benign prostatic hyperplasia without lower urinary tract symptoms; F32.9 Major depressive disorder, single episode, unspecified; Z88.0 Allergy status to penicillin; Z88.2 Allergy status to sulfonamides; Z88.6 Allergy status to analgesic agent
CPT/HCPCS: 71045; 71275; 80053; 82550; 83605; 83735; 84484; 85025; 85379; 85610; 85730; 87040; 93005; 94150; 96374; 96375; J1644; J2270; J3370; J7030; J7040